=== PATIENT | female | born 1975 | race Caucasian/White ===

== ENCOUNTER 2018-09-19 21:14 | Emergency (ER) | payer BC ==
[~2018-09-19] VITALS: Ht 162.6 cm; Wt 86.2 kg
[~2018-09-19 21:14] MED LIST: CIPR500T94 PO; LEVE500T56 PO; LEVO25TA55 PO; LISI1TAB3 PO
[2018-09-19] MEDS ORDERED: methylPREDNISolone SOD SUCC PF 125 MG/2 ML VIAL. IV ONE (21:30)
[2018-09-19] MEDS ORDERED: diphenhydrAMINE 50 MG/ML VIAL IVP ONE (21:30)
[2018-09-19] MEDS ORDERED: ALBUTEROL SULFATE 2.5 MG/3 ML NEBU. NEB ONE (21:30)
[2018-09-19] MEDS ORDERED: FAMOTIDINE 20 MG/2 ML VIAL IVP ONE (21:30)
[2018-09-19] MEDS ORDERED: diphenhydrAMINE 50 MG/ML VIAL IV ONE (21:45)
--- NOTE | 2018-09-19 21:49 | ED.ADGEN ---
Past History Past Medical History: Hypertension, Hypothyroid, Seizure, Other Past Surgical History: , Gastric Bypass, Tubal ligation, Other Smoking: Non-smoker Alcohol Use: None Drug Use: None Adult General Chief Complaint Chief Complaint ".. I getting this swelling in my face again... I am allergic to something we have not be able to figure it...out..." HPI HPI Patient is a 43 year old female who presents with above hx and complaints hives , itching and facial swelling. Pt. has been having recurrent episodes of allergic-like response. Patient was recently taken off her MIGDALIA inhibitor lisinopril, because it was a suspect drug for her presentation. Patient denies any new foods or drugs. Patient denies any specific exposures. Patient denies any history immunosuppression. No recent travel. No specific ill contacts. . Patient normally follows with Dr. Rojas. Review of Systems Review of Systems Constitutional: Denies fever or chills [] Eyes: Denies change in visual acuity, redness, or eye pain [] HENT: Complaints of nasal congestion , facial swelling Respiratory: Denies cough or shortness of breath [] Cardiovascular: No additional information not addressed in HPI [] GI: Denies abdominal pain, nausea, vomiting, bloody stools or diarrhea [] : Denies dysuria or hematuria [] Musculoskeletal: Denies back pain or joint pain [] Integument: Pt. complains of itching and facial swelling and redness Neurologic: Denies headache, focal weakness or sensory changes [] Endocrine: Denies polyuria or polydipsia [] All other systems were reviewed and found to be within normal limits, except as documented in this note. Family History Family History Noncontributory Current Medications Current Medications Current Medications Medications (Trade) Dose Ordered Sig/Makeda Start Time Stop Time Status Last Admin Dose Admin Albuterol Sulfate (Ventolin Hfa Inhaler) 2 puff 1X ONCE 09/19/18 23:00 09/19/18 23:01 DC 09/19/18 22:53 2 PUFF Albuterol Sulfate (Ventolin) 2.5 mg 1X ONCE 09/19/18 21:30 09/19/18 21:32 DC 09/19/18 21:35 2.5 MG Diphenhydramine HCl (Benadryl) 25 mg 1X ONCE 09/19/18 21:45 09/19/18 21:46 DC 09/19/18 21:40 25 MG Famotidine (Pepcid Vial) 20 mg 1X ONCE 09/19/18 21:30 09/19/18 21:32 DC 09/19/18 21:37 20 MG Methylprednisolone Sodium Succinate (SOLU-Medrol 125MG VIAL) 125 mg 1X ONCE 09/19/18 21:30 09/19/18 21:32 DC 09/19/18 21:37 125 MG Allergies Allergies Allergies Coded Allergies Type Severity Reaction Last Updated Verified nizatidine Adverse Reaction Intermediate 01/28/15 Yes Physical Exam Physical Exam Constitutional: Moderate acute distress, non-toxic appearance. [] HENT: Normocephalic, atraumatic, bilateral external ears normal, oropharynx moist, no oral exudates, nose swollen turbinates and clear rhinorrhea.. Facial edema and erythema. Eyes: PERRLA, EOMI, conjunctiva normal, no discharge. [] Neck: Normal range of motion, no tenderness, supple, no stridor. [] Cardiovascular:Tachycardia Heart rate regular rhythm, no murmur [] Lungs & Thorax: Bilateral breath sounds clear to auscultation [] Abdomen: Bowel sounds decreased, soft, no tenderness, no masses, no pulsatile masses. Old surgery scars. Obese. Skin: Warm, dry, no erythema, facial edema and erythema, hive like rash. [] Back: No tenderness, no CVA tenderness. [] Extremities: No tenderness, no cyanosis, no clubbing, ROM intact, trace ankle edema. [] Neurologic: Alert and oriented X 3, normal motor function, normal sensory function, no focal deficits noted. [] Psychologic: Affect anxious, judgement normal, mood normal. [] Current Patient Data Vital Signs Vital Signs Date Time Temp Pulse Resp B/P (MAP) Pulse Ox O2 Delivery O2 Flow Rate FiO2 09/19/18 23:38 85 18 121/73 (89) 96 Room Air 09/19/18 21:15 98.6 EKG EKG [] Radiology/Procedures Radiology/Procedures [] Course & Med Decision Making Course & Med Decision Making Pertinent Labs and Imaging studies reviewed. (See chart for details). Patient to try to identify drugs, food or combination of substance that in site this allergic reaction. Patient take Benadryl 25-50 mg 4 times a day. Patient take Zantac 150 mg twice a day. Patient take prednisone 50 mg day for 5 days. Patient uses MDI 2 puffs 4 times a day. Patient to meet with Dr. Rojas and review her med list. Consider use of rescue/ [place] plan if this is recurrent [] Final Impression Final Impression 1. Allergic reaction[] Dragon Disclaimer Dragon Disclaimer This electronic medical record was generated, in whole or in part, using a voice recognition dictation system. Dragon Disclaimer This chart was dictated in whole or in part using Voice Recognition software in a busy, high-work load, and often noisy Emergency Department environment. It may contain unintended and wholly unrecognized errors or omissions. Discharge Summary Visit Information Final Diagnosis Problems Medical Problems: (1) Allergic Status: Acute Brief Hospital Course Allergies Allergies Coded Allergies Type Severity Reaction Last Updated Verified nizatidine Adverse Reaction Intermediate 01/28/15 Yes Vital Signs Vital Signs Date Time Temp Pulse Resp B/P (MAP) Pulse Ox O2 Delivery O2 Flow Rate FiO2 09/19/18 23:38 85 18 121/73 (89) 96 Room Air 09/19/18 21:15 98.6 Brief Hospital Course Ms. Cee is a 43 old FEMALE who presented with allergic reaction. Etiology unknown. Discharge Information Condition at Discharge: Improved, Stable Disposition/Orders: D/C to Home Dischare Medications Current Medications Methylprednisolone Sodium Succinate (SOLU-Medrol 125MG VIAL) 125 mg 1X ONCE IV Last administered on 09/19/18at 21:37; Admin Dose 125 MG; Start 09/19/18 at 21: 30; Stop 09/19/18 at 21:32; Status DC Famotidine (Pepcid Vial) 20 mg 1X ONCE IVP Last administered on 09/19/18at 21: 37; Admin Dose 20 MG; Start 09/19/18 at 21:30; Stop 09/19/18 at 21:32; Status DC Diphenhydramine HCl (Benadryl) 50 mg 1X ONCE IVP ; Start 09/19/18 at 21:30; Stop 09/19/18 at 21:32; Status DC Albuterol Sulfate (Ventolin) 2.5 mg 1X ONCE NEB Last administered on at 21:35; Admin Dose 2.5 MG; Start 09/19/18 at 21:30; Stop 09/19/18 at 21:32; Status DC Diphenhydramine HCl (Benadryl) 25 mg 1X ONCE IV Last administered on at 21:40; Admin Dose 25 MG; Start 09/19/18 at 21:45; Stop 09/19/18 at 21:46; Status DC Albuterol Sulfate (Ventolin Hfa Inhaler) 2 puff 1X ONCE INH Last administered on 09/19/18at 22:53; Admin Dose 2 PUFF; Start 09/19/18 at 23:00; Stop 09/19/18 at 23:01; Status DC Active Scripts Active Zantac (Ranitidine Hcl) 150 Mg Tablet 150 Mg PO BID 30 Days Prednisone 50 Mg Tablet 50 Mg PO DAILY 5 Days Cipro (Ciprofloxacin Hcl) 500 Mg Tablet 1 Tab PO BID Keppra (Levetiracetam) 500 Mg Tablet 1 Tab PO BID Reported Synthroid (Levothyroxine Sodium) 25 Mcg Tablet 1 Tab PO DAILY Lisinopril-Hctz 10-12.5 Mg Tab (Lisinopril/Hydrochlorothiazide) 1 Each Tablet 1 Tab PO DAILY ABILIO LAZO MD Sep 19, 2018 21:49
[2018-09-19] MEDS ORDERED: ALBUTEROL SULFATE 8GM INHALER. INH ONE (23:00)
[2018-09-19 23:38] VITALS: BP 121/73
[2018-09-19] MEDS ORDERED: RANI150T21 PO (23:39)
[2018-09-19] MEDS ORDERED: PRED50TA PO (23:39)
== END 2018-09-19 23:25 | disposition home or self-care (01) ==
LOC: ER 21:14
DX: T78.49XA Other allergy, initial encounter (principal); I10 Essential (primary) hypertension; E03.9 Hypothyroidism, unspecified; Z98.84 Bariatric surgery status; Z88.8 Allergy status to other drugs, medicaments and biological substances; X58.XXXA Exposure to other specified factors, initial encounter
CPT/HCPCS: 94640; 96374; 96375; 99284; J1200; J2930; J3490; J7613